=== PATIENT | female | born 2000 | race African-American/Black ===

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

== ENCOUNTER 2021-08-24 22:04 | Emergency (ER) | payer SELFPAY ==
[~2021-08-24] VITALS: Ht 160 cm; Wt 43.6 kg
[~2021-08-24 22:04] MED LIST changes: +LIDO20SO10 MM
[2021-08-24 22:20] VITALS: BP 134/64
--- NOTE | 2021-08-24 22:26 | PHYS DOC ---
Past Medical History Past Medical History: No Pertinent History, Migraines Past Surgical History: No Surgical History Smoking Status: Current Some Day Smoker Alcohol Use: Occasionally Drug Use: Marijuana General Adult EDM: Chief Complaint: VAGINAL PROBLEM HPI: HPI: Patient is a 21 year old female who presents with vaginal itching and vaginal discharge for the past several days. She denies any pelvic or abdominal pain. She denies fevers or chills. She denies nausea, vomiting, anorexia, bowel habit changes. She denies urinary symptoms. She denies vaginal bleeding. LMP about 1 week ago. She recently has had new sexual partners. She does not have any specific concerns for STI. She reports that she is treated for chlamydia cervicitis a few years ago. No history of PID. Review of Systems: Review of Systems: Constitutional: Denies fever or chills. [] HENT: Denies sore throat. [] Respiratory: Denies cough or shortness of breath. [] Cardiovascular: Denies chest pain or edema. [] GI: Denies abdominal pain, nausea, vomiting, bloody stools or diarrhea. [] : Denies urinary symptoms. She does report vaginal discharge. Denies pelvic pain. Musculoskeletal: Denies back pain or joint pain. [] Integument: Denies rash. [] Neurologic: Denies headache, focal weakness or sensory changes. [] Psychiatric: Denies depression or anxiety. [] Heart Score: C/O Chest Pain: No Risk Factors: Risk Factors: DM, Current or recent (<one month) smoker, HTN, HLP, family history of CAD, obesity. Risk Scores: Score 0 - 3: 2.5% MACE over next 6 weeks - Discharge Home Score 4 - 6: 20.3% MACE over next 6 weeks - Admit for Clinical Observation Score 7 - 10: 72.7% MACE over next 6 weeks - Early Invasive Strategies Allergies: Allergies: Allergies Coded Allergies Type Severity Reaction Last Updated Verified No Known Drug Allergies 07/15/15 No Physical Exam: PE: Constitutional: Well developed, well nourished, no acute distress, non-toxic appearance. [] HENT: Normocephalic, atraumatic Eyes: Sclera clear, anicteric. Neck: Trachea is midline. Cardiovascular:Heart rate regular rhythm, +2 radial and dorsalis pedis pulses bilaterally. Lungs & Thorax: Bilateral breath sounds clear to auscultation [] Abdomen: Abdomen soft, nondistended, nontender to palpation. : External lesions are noted. There is moderate white vaginal discharge. Cervix is clear, no erythema, no exudate, no purulent discharge. No bleeding. No CMT. No tenderness to palpation with bimanual exam. No palpable masses or fullness on bimanual exam. Skin: Warm, dry, no erythema, no rash. [] Back: No tenderness, no CVA tenderness. [] Extremities: No tenderness, no cyanosis, no clubbing, ROM intact, no edema. [] Neurologic: Alert and oriented X 3, ambulatory with a steady gait, speech is clear and fluent Psychologic: He is pleasant and cooperative, affect normal. EKG: EKG: [] Radiology/Procedures: Radiology/Procedures: [] Course & Med Decision Making: Course & Med Decision Making Pertinent Labs and Imaging studies reviewed. (See chart for details) I discussed the findings, differential diagnosis and plan of care with her. She has no subjective pelvic or abdominal pain, no tenderness on exam. No indication for invasive radiologic exams. Exam findings are suggestive of bacterial vaginosis. She is given a first dose of p.o. Flagyl here. She de clines empiric treatment for cervicitis. She does understand that GC and chlamydia swabs are pending, and she should be notified of any abnormal or positive results. I do recommend abstinence until these results return as well as resolution of symptoms. She is comfortable with the plan of care, comfortable with discharge home. Return precautions are given. Princess Disclaimer: Princess Disclaimer: This electronic medical record was generated, in whole or in part, using a voice recognition dictation system. Departure Departure Impression: Primary Impression: Bacterial vaginosis Disposition: HOME / SELF CARE / HOMELESS Condition: GOOD Referrals: NON,STAFF (PCP) Patient Instructions: Bacterial Vaginosis Additional Instructions: Take the full course of antibiotics. You should take the antibiotics with food make sure it does not upset your stomach. Avoid using any alcohol with this medication as it will make you sick. Return immediately for any more severe pelvic or abdominal pain or cramping, uncontrolled vomiting with dehydration, temperature of 100.4 or higher or any other concerns. You should be notified if your other swabs return for any unexpected infections. Follow-up with your primary care physician. Scripts Metronidazole (METRONIDAZOLE) 500 Mg Tablet 1 TAB PO BID for 7 Days, #14 TAB 0 Refills Prov: NISSA BENITEZ DO 08/24/21 NISSA BENITEZ DO Aug 24, 2021 22:26
[2021-08-24 22:34] LABS: BILIRUBIN,URINE NEGATIVE (NEG); CLARITY,URINE CLOUDY; COLOR,URINE YELLOW; NITRITE,URINE NEGATIVE (NEG); PROTEIN,URINE NEGATIVE (NEG-TRACE)
[2021-08-24 22:40] LABS: BACTERIA,URINE MODERATE /HPF (0-FEW); RBC,URINE OCC /HPF (0-2)
[2021-08-24] MEDS ORDERED: METR-34 PO (23:10)
[2021-08-24] MEDS ORDERED: metroNIDAZOLE 500 MG TABLET PO ONE (23:15)
[2021-08-28 14:11] LABS: GC PROBE Negative (Negative)
== END 2021-08-24 23:20 | disposition home or self-care (01) ==
LOC: ER 22:04
DX: N76.0 Acute vaginitis (principal); B96.89 Other specified bacterial agents as the cause of diseases classified elsewhere; G43.909 Migraine, unspecified, not intractable, without status migrainosus; F17.200 Nicotine dependence, unspecified, uncomplicated
CPT/HCPCS: 81001; 81025; 87086; 87491; 87591; 99284; Q0111; 87147

== ENCOUNTER 2021-10-17 18:00 | Emergency (ER) | payer BC ==
[~2021-10-17] VITALS: Ht 157.5 cm; Wt 45.9 kg
[~2021-10-17 18:00] MED LIST changes: +METR-34 PO
[2021-10-17 19:05] VITALS: BP 142/69
[2021-10-17 19:33] LABS: BILIRUBIN,URINE NEGATIVE (NEG); CLARITY,URINE CLEAR; COLOR,URINE YELLOW; NITRITE,URINE NEGATIVE (NEG); PROTEIN,URINE NEGATIVE (NEG-TRACE); UROBILINOGEN,URINE 0.2 mg/dL (0.2 mg/dL)
[2021-10-17 19:48] LABS: BACTERIA,URINE FEW /HPF (0-FEW); RBC,URINE 0 /HPF (0-2); WBC,URINE OCC /HPF (0-4)
[2021-10-17] MEDS ORDERED: METR-34 PO (20:57)
[2021-10-17] MEDS ORDERED: DOXY100C3 PO (20:57)
--- NOTE | 2021-10-17 20:59 | PHYS DOC ---
Past Medical History Past Medical History: No Pertinent History, Migraines Past Surgical History: No Surgical History Smoking Status: Never Smoker Alcohol Use: Rarely Drug Use: Marijuana Adult General Chief Complaint Chief Complaint: VAGINAL PROBLEM HPI HPI The patient is a 21-year-old female who is otherwise healthy. She presents for evaluation of vaginal odor and irritation in association with a mild vaginal discharge which have been present over the past few days. She endorses recent unprotected intercourse. She denies any other focal or specific symptoms and specifically denies fevers, nausea or vomiting, abdominal pain of any kind, flank pain, midline back pain, dysuria, hematuria, polyuria or oliguria, unusual vaginal bleeding, changes in bowel habits. Review of Systems Review of Systems A 12 point review of systems was completed and was negative except where noted in HPI above. Current Medications Current Medications Current Medications Medications (Trade) Dose Ordered Sig/Ailyn Start Time Stop Time Status Last Admin Dose Admin Ceftriaxone Sodium (Rocephin Im) 500 mg 1X ONCE 10/17/21 20:45 10/17/21 20:46 UNV Doxycycline Hyclate (Vibra-Tab) 100 mg 1X ONCE 10/17/21 20:45 10/17/21 20:46 UNV Metronidazole (Flagyl) 500 mg 1X ONCE 10/17/21 20:45 10/17/21 20:46 UNV Allergies Allergies Allergies Coded Allergies Type Severity Reaction Last Updated Verified No Known Drug Allergies 07/15/15 No Physical Exam Physical Exam 21-year-old female appearing nontoxic and in no acute distress. Head is normocephalic and atraumatic. Neck is supple and nontender. Oropharynx is moist. Lungs are clear to auscultation at all stations. There is a normal S1 and S2 without rubs or gallops and capillary refill is appropriate, less than 2 seconds globally. Abdomen is soft, nontender nondistended. Skin is warm and dry without cyanosis, clubbing or edema. Psychiatrically, the patient demonstrates appropriate mood and affect and is alert. External genital exam with nurse candy polisher reveals mild skin irritation from recent shaving without obvious folliculitis or other acute process seen to the skin. No inguinal lymphadenopathy, no rashes or lesions, no discharge seen. Current Patient Data Vital Signs Vital Signs Date Time Temp Pulse Resp B/P (MAP) Pulse Ox O2 Delivery O2 Flow Rate FiO2 10/17/21 19:05 98.3 96 18 142/69 (93) 100 Room Air 98.3 Lab Values Laboratory Tests Test 10/17/21 19:10 10/17/21 19:22 Urine Collection Type Unknown Urine Color Yellow Urine Clarity Clear Urine pH 7.0 (<5.0-8.0) Urine Specific [place] <=1.005 (1.000-1.030) Urine Protein Negative mg/dL (NEG-TRACE) Urine Glucose (UA) Negative mg/dL (NEG) Urine Ketones (Stick) Negative mg/dL (NEG) Urine Blood Negative (NEG) Urine Nitrite Negative (NEG) Urine Bilirubin Negative (NEG) Urine Urobilinogen Dipstick 0.2 mg/dL (0.2 mg/dL) Urine Leukocyte Esterase Negative (NEG) Urine RBC 0 /HPF (0-2) Urine WBC Occ /HPF (0-4) Urine Squamous Epithelial Cells Many /LPF Urine Bacteria Few /HPF (0-FEW) POC Urine HCG, Qualitative Hcg negative (Negative) Microbiology 10/17/21 Wet Prep - Final, Complete EKG EKG [] Radiology/Procedures Radiology/Procedures [] Course & Med Decision Making Course & Med Decision Making Patient is positive for BV. In addition she would like to be treated empirically for STDs. We will treat for gonorrhea and chlamydia and refer her to the health department for syphilis and HIV testing. Will prescribe Vaseline intensive care ointment for mild razor burn to groin. Patient is to follow-up closely with primary care in the office in the next 3 to 5 days and understands that if she feels worse instead of better or develops other new symptoms of concern that she will need to return to the emergency department immediately for reevaluation. All questions were answered. Advised to abstain from alcohol while she is taking Flagyl. Dragon Disclaimer Dragon Disclaimer This electronic medical record was generated, in whole or in part, using a voice recognition dictation system. Departure Departure Impression: Primary Impression: Bacterial vaginosis Additional Impressions: Screening for STDs (sexually transmitted diseases) Skin irritation Disposition: 01 HOME / SELF CARE / HOMELESS Condition: GOOD Patient Instructions: Bacterial Vaginosis Additional Instructions: Follow-up very closely with your primary care doctor in the office in the next 3 to 5 days for reevaluation of your symptoms and to discussion of next best steps in care. You have bacterial vaginosis which we are treating with a course of an antibiotic called Flagyl. We are also treating you for gonorrhea and chlamydia; take the doxycycline antibiotic until it is gone as well. Recommend you follow-up at the health department to be treated for syphilis, HIV and other sexually transmitted diseases. Do not drink alcohol while taking the Flagyl antibiotic as it will make you very sick. Have your partner(s) tested and treated. Return to the emergency department right away for worsening symptoms of any kind or with any other new symptoms of concern. For your vaginal irritation which is probably due to recent shaving, you may try using Vaseline intensive care lotion which is available [id number] at any pharmacy. Scripts Metronidazole (METRONIDAZOLE) 500 Mg Tablet 1 TAB PO BID for 7 Days, #14 TAB 0 Refills Prov: JAYLYN ALEXANDRA MD 10/17/21 Doxycycline Hyclate (DOXYCYCLINE HYCLATE) 100 Mg Capsule 1 CAP PO BID for 7 Days, #14 CAP Prov: JAYLYN ALEXANDRA MD 10/17/21 Problem Qualifiers JAYLYN ALEXANDRA MD Oct 17, 2021 20:59
[2021-10-17] MEDS ORDERED: DOXYCYCLINE HYCLATE 100 MG TABLET PO ONE (21:00)
[2021-10-17] MEDS ORDERED: metroNIDAZOLE 500 MG TABLET PO ONE (21:00)
[2021-10-17] MEDS ORDERED: cefTRIAXone IM 500 MG VIAL. IM ONE (21:00)
[2021-10-19 21:21] LABS: GC PROBE Negative (Negative)
== END 2021-10-17 21:34 | disposition home or self-care (01) ==
LOC: ER 18:00
DX: N76.0 Acute vaginitis (principal); B96.89 Other specified bacterial agents as the cause of diseases classified elsewhere; G43.909 Migraine, unspecified, not intractable, without status migrainosus; Z20.2 Contact with and (suspected) exposure to infections with a predominantly sexual mode of transmission
CPT/HCPCS: 81001; 81025; 87491; 87591; 96372; 99283; J0696; Q0111